=== PATIENT | female | born 2000 | race Caucasian/White ===

== ENCOUNTER 2021-05-17 15:40 | Emergency (ER) | payer OTHER ==
[2021-05-17] MEDS ORDERED: IBU600 MG PO (16:46)
== END 2021-05-17 16:54 | disposition home or self-care (01) ==
LOC: ER1 15:40
DX: S92.354A Nondisplaced fracture of fifth metatarsal bone, right foot, initial encounter for closed fracture (principal); W22.8XXA Striking against or struck by other objects, initial encounter; Y92.009 Unspecified place in unspecified non-institutional (private) residence as the place of occurrence of the external cause
CPT/HCPCS: 73630; 99283